=== PATIENT | male | born 1955 | race Caucasian/White ===

== ENCOUNTER 2016-12-28 14:45 | Emergency (ER) | payer BC ==
[~2016-12-28] VITALS: Ht 177.8 cm; Wt 113.4 kg
[~2016-12-28 14:45] MED LIST: ATORVASTATIN CA10 MG ORAL
[2016-12-28 14:47] VITALS: BP 140/79
[2016-12-28] MEDS ORDERED: Nitroglycerin 2% oint pkt TOPIC ONE (15:15)
[2016-12-28 15:29] LABS: BASOPHILS % (AUTO) 1.1 % (0.0-2.0); EOSINOPHILS % (AUTO) 1.4 % (0.0-3.0); LYMPHOCYTES % (AUTO) 30.1 % (20.0-45.0); MEAN CORPUSCULAR HEMOGLOBIN 34.9 PG (27.0-31.0); MEAN CORPUSCULAR HGB CONC 40.7 G/DL (32.0-36.0); MEAN CORPUSCULAR VOLUME 86 FL (80-99); MEAN PLATELET VOLUME 6.1 FL (6.5-10.1); MONOCYTES % (AUTO) 8.6 % (1.0-10.0); NEUTROPHILS % (AUTO) 58.8 % (45.0-75.0); PLATELET COUNT 194 K/UL (150-450); RED BLOOD COUNT 4.83 M/UL (4.70-6.10); RED CELL DISTRIBUTION WIDTH 11.4 % (11.6-14.8); WHITE BLOOD COUNT 9.6 K/UL (4.8-10.8)
[2016-12-28 15:31] LABS: ALANINE AMINOTRANSFERASE 39 U/L (3-41); ALBUMIN/GLOBULIN RATIO 1.6 (1.0-2.7); ANION GAP 18 (5-15); ASPARTATE AMINO TRANSFERASE 24 U/L (5-40); CALCIUM 8.9 mg/dL (8.6-10.2); CARBON DIOXIDE 23 mEQ/L (20-30); CHLORIDE 100 mEQ/L (98-107); CREATININE 1.1 mg/dL (0.7-1.2); GLOMERULAR FILTRATION RATE > 60 mL/min (>60); HEMOLYSIS 13; POTASSIUM 3.7 mEQ/L (3.4-4.9); SODIUM 141 mEQ/L (135-145); TOTAL PROTEIN 6.7 g/dL (6.6-8.7); TROPONIN I < 0.30 ng/mL (<=0.30)
--- NOTE | 2016-12-28 15:56 | Diagnostic Imaging Report ---
Indication: Chest pain Technique: One view of the chest Comparison: none Findings: The heart is mildly enlarged. Lungs and pleural spaces are clear. There is evidence of prior CABG Impression: Borderline cardiomegaly No acute process.
--- NOTE | 2016-12-28 16:52 | Emergency Room Report ---
History of Present Illness General Chief Complaint: Chest Pain Source: Patient, EMS Present Illness HPI 61-year-old male presents ED for evaluation. Patient states he's been experiencing chest tightness for the last 2 weeks. Went to big machine consultant office today. Patient was experiencing chest pain so they called 911. Patient was in SVT. Patient was given aspirin and nitroglycerin x3 with chest pain improved. Patient states he has some minimal chest tightness at this time. 01/18. Midsternal. Nonradiating. No aggravating or relieving factors. Denies shortness of breath. Denies drug use. [employer] Specialist is Dr Alexys Boone. No other aggravating or relieving factors. Denies any other associated symptoms Allergies: Coded Allergies: No Known Allergies (Unverified , 12/28/16) Patient History Past Medical History: HTN Past Surgical History: other - aortic valve replacement Pertinent Family History: none Social History: Denies: alcohol use, drug use, smoking Immunizations: UTD Reviewed Nursing Documentation: PMH: Agreed, PSxH: Agreed Nursing Documentation-PMH Hx Cardiac Problems: Yes - Aortic valve replacement Hx Hypertension: Yes - High cholesterol Review of Systems All Other Systems: negative except mentioned in HPI Physical Exam Vital Signs Date Time Temp Pulse Resp B/P Pulse Ox O2 Delivery O2 Flow Rate FiO2 12/28/16 14:36 98.1 83 18 147/96 97 Room Air Sp02 EP Interpretation: reviewed, normal General Appearance: no apparent distress, alert, GCS 15, non-toxic Head: normocephalic, atraumatic Eyes: bilateral eye PERRL, bilateral eye normal inspection ENT: hearing grossly normal, normal pharynx, no angioedema, normal voice Neck: full range of motion, supple/symm/no masses Respiratory: chest non-tender, lungs clear, normal breath sounds, speaking full sentences Cardiovascular #1: regular rate, rhythm, no edema Cardiovascular #2: 2+ carotid (R), 2+ carotid (L), 2+ radial (R), 2+ radial (L) , 2+ dorsalis pedis (R), 2+ dorsalis pedis (L) Gastrointestinal: normal bowel sounds, non tender, soft, non-distended, no guarding, no rebound Rectal: deferred Genitourinary: normal inspection, no CVA tenderness Musculoskeletal: back normal, gait/station normal, normal range of motion, non- tender Neurologic: alert, oriented x3, responsive, motor strength/tone normal, sensory intact, speech normal Psychiatric: judgement/insight normal, memory normal, mood/affect normal, no suicidal/homicidal ideation Reflexes: 3+ bicep (R), 3+ bicep (L), 3+ tricep (R), 3+ tricep (L), 3+ knee (R) , 3+ knee (L) Skin: normal color, no rash, warm/dry, well hydrated Lymphatic: no adenopathy Medical Decision Making Diagnostic Impression: Primary Impression: ACS (acute coronary syndrome) ER Course Hospital Course 61-year-old male presents ED complaining of chest tightness, tachycardic. relieved with ASA/Nitro Differential diagnoses include: VT/unstable angina, contusion, muscle strain, PTX, rib fracture Clinical course Patient placed on stretcher. on monitoring analyst. After initial history and physical I ordered labs, EKG, chest x-ray,Nitropaste labs reviewed- no leukocytosis, hb/hct stable, electrolytes ok, trop negative EKG- no acute ischemic changes Chest x-ray- borderline cardiomegaly I discussed case with big machine consultant Dr. Boone. He is concerned about unstable angina and is requesting transfer to [facility] for cath. [facility] accepted the patient for transfer I. I feel this is a highly complex case requiring extensive working including EKG/Rhythm strip, Xray/CT/US, Blood/urine lab work, repeat exams while in ED, and administration of strong opiates/narcotics for pain control, admission to hospital or close patient follow up. Diagnosis - ACS transferred to [facility] in serious condition Labs Test 12/28/16 15:00 White Blood Count 9.6 K/UL (4.8-10.8) Red Blood Count 4.83 M/UL (4.70-6.10) Hemoglobin 16.9 G/DL (14.2-18.0) Hematocrit 41.5 % (42.0-52.0) Mean Corpuscular Volume 86 FL (80-99) Mean Corpuscular Hemoglobin 34.9 PG (27.0-31.0) Mean Corpuscular Hemoglobin Concent 40.7 G/DL (32.0-36.0) Red Cell Distribution Width 11.4 % (11.6-14.8) Platelet Count 194 K/UL (150-450) Mean Platelet Volume 6.1 FL (6.5-10.1) Neutrophils (%) (Auto) 58.8 % (45.0-75.0) Lymphocytes (%) (Auto) 30.1 % (20.0-45.0) Monocytes (%) (Auto) 8.6 % (1.0-10.0) Eosinophils (%) (Auto) 1.4 % (0.0-3.0) Basophils (%) (Auto) 1.1 % (0.0-2.0) Sodium Level 141 mEQ/L (135-145) Potassium Level 3.7 mEQ/L (3.4-4.9) Chloride Level 100 mEQ/L (98-107) Carbon Dioxide Level 23 mEQ/L (20-30) Anion Gap 18 (5-15) Blood Urea Nitrogen 21 mg/dL (7-23) Creatinine 1.1 mg/dL (0.7-1.2) Estimat Glomerular Filtration Rate > 60 mL/min (>60) Glucose Level 118 mg/dL (74-106) Calcium Level 8.9 mg/dL (8.6-10.2) Total Bilirubin < 0.2 mg/dL (0.0-1.2) Aspartate Amino Transf (AST/SGOT) 24 U/L (5-40) Alanine Aminotransferase (ALT/SGPT) 39 U/L (3-41) Alkaline Phosphatase 71 U/L (40-129) Total Creatine Kinase 130 U/L (38-174) Creatine Kinase MB 3.0 ng/mL (< 6.7) Creatine Kinase MB Relative Index 2.3 Troponin I < 0.30 ng/mL (<=0.30) Pro-B-Type Natriuretic Peptide 35 pg/mL (0-125) Total Protein 6.7 g/dL (6.6-8.7) Albumin 4.2 g/dL (3.5-5.2) Globulin 2.5 g/dL Albumin/Globulin Ratio 1.6 (1.0-2.7) EKG Diagnostic Results Rate: normal Rhythm: NSR ST Segments: no acute changes ASA given to the pt in ED: No - given by ems Rhythm Strip Diag. Results EP Interpretation: yes Rhythm: NSR, no PVC's, no ectopy Chest X-Ray Diagnostic Results EP Interpretation: No Findings: no consolidation, no effusion, no pneumothorax, no acute cardiopulmonary disease, other - cardiomegaly Number of Views: 1 Last Vital Signs Date Time Temp Pulse Resp B/P Pulse Ox O2 Delivery O2 Flow Rate FiO2 12/28/16 15:20 140/79 12/28/16 14:47 74 18 Room Air 12/28/16 14:47 98.1 97 Status: improved [facility] Condition: Serious Referrals: NON PHYSICIAN (PCP) MARCOS BUENO M.D. Dec 28, 2016 16:52
[2016-12-28 17:04] VITALS: BP 139/82
[2016-12-28 17:34] VITALS: BP 139/82
--- NOTE | 2016-12-31 10:54 | Cardiology Report ---
APPROVED REPORT EKG Measurement Heart [id number] MD [id number] Normal sinus rhythm Normal ECG
== END 2016-12-28 17:34 | disposition short-term general hospital (02) ==
LOC: EDBD 14:45 → EMR 15:35
DX: I24.9 Acute ischemic heart disease, unspecified (principal); I10 Essential (primary) hypertension; E78.00 Pure hypercholesterolemia, unspecified
CPT/HCPCS: 36415; 71010; 80053; 82550; 82553; 83880; 84484; 85025; 93005